=== PATIENT | male | born 1960 | race Caucasian/White ===

== ENCOUNTER → 2016-10-21 | Outpatient (CLI) | payer OTHER ==
--- NOTE | 2016-10-21 11:12 | RAD ---
Indication right hip replacement in 2006. Chronic pain in the right hip. AP and frog leg views of the right hip were obtained. No prior imaging is available. There is a total right hip prosthesis. An acute finding is not seen. Definite evidence of complication is not seen. Soft tissue calcifications are noted. IMPRESSION: Total right hip prosthesis. No acute finding seen. No definite complication seen
== END | disposition home or self-care (01) ==
LOC: RAD 10:07
PROVIDERS: ATTEND Neuromusculoskeletal Medicine, Sports Medicine
DX: Z96.641 Presence of right artificial hip joint (principal)
CPT/HCPCS: 73502